=== PATIENT | female | born 1960 | race Caucasian/White ===

== ENCOUNTER 2017-03-20 18:40 | Emergency (ER) | payer BC | END 2017-03-20 20:03 | disposition left against medical advice (07) | LOC: ER 18:40 | DX: Z53.20 Procedure and treatment not carried out because of patient's decision for unspecified reasons (principal) ==

== ENCOUNTER 2017-03-21 01:16 | Emergency (ER) | payer BC ==
[2017-03-21] MEDS ORDERED: METHYLPREDNISOLONE PF 125MG/VIAL IVP ONE (01:24)
[2017-03-21] MEDS ORDERED: IPRATROPIUM/ALBUTEROL (0.5MG/3MG) NEB INH ONE (01:24)
[2017-03-21] MEDS ORDERED: FUROSEMIDE IV 40MG/4ML VIAL IVP ONE (01:28)
[2017-03-21 01:34] LABS: BASO % 0.7 % (0-6); EOS % 5.7 % (0-6); GRAN % 58.9 % (47-80); HEMATOCRIT 38.6 % (35.0-47.0); HEMOGLOBIN 12.7 gm/dl (11.6-16.0); LYMPH % 28.2 % (16-45); MEAN CELL VOLUME 94.8 fl (81-97); MEAN CORPUSCULAR HEMOGLOBIN 31.2 pg (27-33); MEAN CORPUSCULAR HGB CONC 32.9 g/dl (32-36); MEAN PLATELET VOLUME 9.7 fl (7.4-10.4); MONO % 6.5 % (0-9); PLATELET COUNT 322 K/uL (130-400); RED BLOOD COUNT 4.07 M/uL (3.80-5.40); RED CELL DISTRIBUTION WIDTH 13.4 % (11.5-14.5); WHITE BLOOD COUNT W/O DIFF 9.2 K/uL (4.2-12.2)
[2017-03-21] MEDS ORDERED: HUMULIN R 100 UNIT/ML VIAL SQ ONE (01:37)
[2017-03-21 01:43] LABS: BLOOD UREA NITROGEN 22 mg/dL (6-20); CREATININE 0.8 mg/dL (0.5-0.9); EST GLOMERULAR FILTRATION RATE > 60 mL/min
[2017-03-21 01:44] LABS: TOTAL PROTEIN 6.2 g/dL (6.6-8.7)
[2017-03-21 01:46] LABS: GLUCOSE,RANDOM 309 mg/dL (74-109)
[2017-03-21 01:48] LABS: ALT/SGPT 24 U/L (<33); AST/SGOT 27 U/L (10.0-35.0)
[2017-03-21 01:49] LABS: ALB/GLOB RATIO 0.9 (1.1-1.8); ALBUMIN 2.9 g/dL (4.0-5.0); ALKALINE PHOSPHATASE 116 U/L (35-104)
--- NOTE | 2017-03-21 02:42 | Emergency Department Record ---
History of Present Illness - General Chief Complaint: Shortness of breath Stated Complaint: FERCHO Time Seen by Provider: 03/21/17 01:17 Source: Patient Mode of Arrival: Ambulatory Limitations: No limitations - History of Present Illness Initial Comments: pt became suddenly sob this evening. she came to the ed but decided to leave because we were busy. she then had some cp at home and became much worse. she called 911 but then decided to have her son drive her in, she arrived in respiratory distress saying she cant breathe. Complaint: Shortness of breath Onset/Timin -: Hour(s) Consistency: Getting worse Improves With: Upright position Worsens With: Coughing, Lying flat, Movement Known History Of: Diabetes Associated Symptoms: Chest pain, Cough, Diaphoresis, Orthopnia Treatments Prior to Arrival: None - Related Data Home Oxygen Therapy: No Allergies Allergy/AdvReac Type Severity Reaction Status Date / Time Penicillins Allergy HIVES Unverified 11/21/16 08:48 vancomycin Allergy HIVES Unverified 11/21/16 08:48 Travel Screening - Travel/Exposure Within Last 30 Days Have you traveled within the last 30 days?: No - Travel Symptoms Symptom Screening: None Review of Systems Reviewed: No additional complaints except as noted below Constitutional: Reports: As per HPI, Weakness. Denies: Chills, Fever, Malaise, Night sweats, Weight change Eyes: Reports: As per HPI. Denies: Eye discharge, Eye pain, Photophobia, Vision change ENT: Reports: As per HPI, Congestion. Denies: Dental pain, Ear pain, Epistaxis , Hearing loss, Throat pain Respiratory: Reports: As per HPI, Cough, Dyspnea. Denies: Hemoptysis, Stridor, Wheezes Cardiovascular: Reports: As per HPI. Denies: Arrhythmia, Chest pain, Dyspnea on exertion, Edema, Murmurs, Orthopnea, Palpitations, Paroxysmal nocturnal dyspnea, Rheumatic Fever, Syncope Endocrine: Reports: As per HPI. Denies: Fatigue, Heat or cold intolerance, Polydipsia, Polyuria Gastrointestinal: Reports: As per HPI. Denies: Abdominal pain, Constipation, Diarrhea, Hematemesis, Hematochezia, Melena, Nausea, Vomiting Genitourinary: Reports: As per HPI. Denies: Abnormal menses, Discharge, Dyspareunia, Dysuria, Frequency, Hematuria, Incontinence, Retention, Urgency Musculoskeletal: Reports: As per HPI. Denies: Arthralgia, Back pain, Gout, Joint swelling, Myalgia, Neck pain Skin: Reports: As per HPI. Denies: Bruising, Change in color, Change in hair/ nails, Lesions, Pruritus, Rash Neurological: Reports: As per HPI. Denies: Abnormal gait, Confusion, Headache, Numbness, Paresthesias, Seizure, Tingling, Tremors, Vertigo, Weakness Psychiatric: Reports: As per HPI. Denies: Anxiety, Auditory hallucinations, Depression, Homicidal thoughts, Suicidal thoughts, Visual hallucinations Hematological/Lymphatic: Reports: As per HPI. Denies: Anemia, Blood Clots, Easy bleeding, Easy bruising, Swollen glands Past Medical History - SOCIAL HISTORY Smoking Status: Current every day smoker Alcohol Use: None Drug Use: None - RESPIRATORY Hx Respiratory Disorders: No - CARDIOVASCULAR Hx Cardio Disorders: Yes Hx Hypertension: Yes - NEURO Hx Neuro Disorders: No - GI Hx GI Disorders: No - Hx Genitourinary Disorders: Yes Hx Renal Disease: Yes (Stage 2) - ENDOCRINE Hx Endocrine Disorders: Yes Hx Diabetes: Yes (DM1) Hx Thyroid Disease: Yes (Hypo) - MUSCULOSKELETAL Hx Musculoskeletal Disorders: No - PSYCH Hx Psych Problems: No - HEMATOLOGY/ONCOLOGY Hx Hematology/Oncology Disorders: Yes Hx Cancer: Yes (Skin (surgically removed)) Hx Chemotherapy: No Hx Radiation Therapy: No Family Medical History Any Significant Family History?: Yes Hx Cancer: Mother, Brother/Sister Hx Heart Disease: Father Physical Exam - General General Appearance: Alert, Oriented x3, Cooperative, Mild distress - Head Head exam: Normal inspection - Eye Eye exam: Normal appearance, PERRL, EOMI Pupils: Normal accommodation - ENT ENT exam: Normal exam, Mucous membranes moist, Normal external ear exam, Normal orophraynx Ear exam: Normal external inspection. negative: External canal tenderness Nasal Exam: Normal inspection. negative: Discharge, Sinus tenderness Mouth exam: Normal external inspection, Tongue normal Teeth exam: Normal inspection. negative: Dental caries Throat exam: Normal inspection. negative: Tonsillar erythema, Tonsillar exudate - Neck Neck exam: Normal inspection, Full ROM. negative: Tenderness - Respiratory Respiratory exam: Normal lung sounds bilaterally. negative: Respiratory distress - Cardiovascular Cardiovascular Exam: Normal rhythm, Normal heart sounds, Tachycardia - GI/Abdominal GI/Abdominal exam: Soft, Normal bowel sounds. negative: Tenderness - Rectal Rectal exam: Deferred - exam: Deferred - Extremities Extremities exam: Normal inspection, Full ROM, Normal capillary refill. negative: Tenderness - Back Back exam: Reports: Normal inspection, Full ROM. 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 ] Respiratory 24 31 H 19 Rate Blood Pressure 169/96 155/84 [Left Arm] Pulse Ox 97 99 94 L - Reevaluation(s) Reevaluation #1: 03/21/17 04:28 pt is doing better though she does desat quickly when she moves around Medical Decision Making - Lab Data Result diagrams: 03/21/17 01:30 03/21/17 01:30 Lab Results 03/21/17 03/21/17 03/21/17 Range/Units 01:30 01:30 01:30 WBC 9.2 (4.2-12.2) K/uL RBC 4.07 (3.80-5.40) M/uL Hgb 12.7 (11.6-16.0) gm/dl Hct 38.6 (35.0-47.0) % MCV 94.8 (81-97) fl MCH 31.2 (27-33) pg MCHC 32.9 (32-36) g/dl RDW 13.4 (11.5-14.5) % Plt Count 322 (130-400) K/uL MPV 9.7 (7.4-10.4) fl Gran % 58.9 (47-80) % Lymphocytes % 28.2 (16-45) % Monocytes % 6.5 (0-9) % Eosinophils % 5.7 (0-6) % Basophils % 0.7 (0-6) % D-Dimer 1.99 H (0-0.59) mg/L FEU Sodium 140 (136-145) mmol/L Potassium 4.2 (3.4-4.5) mmol/L Chloride 100 (98-107) mmol/L Carbon Dioxide 30.0 H (22-29) mmol/L Anion Gap 10.0 (7-16) BUN 22 H (6-20) mg/dL Creatinine 0.8 (0.5-0.9) mg/dL Estimated GFR > 60 mL/min Random Glucose 309 H (74-109) mg/dL Calcium 8.8 (8.6-10.0) mg/dL Total Bilirubin 0.20 (0.2-1.0) mg/dL AST 27 (10.0-35.0) U/L ALT 24 (<33) U/L Alkaline Phosphatase 116 H (35-104) U/L Troponin T 0.042 H (0-0.010) ng/mL NT-Pro-B Natriuret Pep 5803.00 H (<125) pg/mL Total Protein 6.2 L (6.6-8.7) g/dL Albumin 2.9 L (4.0-5.0) g/dL Globulin 3.3 (1.4-4.8) gm/dL Albumin/Globulin Ratio 0.9 L (1.1-1.8) 1818 Range/Units 01:33 WBC (4.2-12.2) K/uL RBC (3.80-5.40) M/uL Hgb (11.6-16.0) gm/dl Hct (35.0-47.0) % MCV (81-97) fl MCH (27-33) pg MCHC (32-36) g/dl RDW (11.5-14.5) % Plt Count (130-400) K/uL MPV (7.4-10.4) fl Gran % (47-80) % Lymphocytes % (16-45) % Monocytes % (0-9) % Eosinophils % (0-6) % Basophils % (0-6) % D-Dimer (0-0.59) mg/L FEU Sodium (136-145) mmol/L Potassium (3.4-4.5) mmol/L Chloride (98-107) mmol/L Carbon Dioxide (22-29) mmol/L Anion Gap (7-16) BUN (6-20) mg/dL Creatinine (0.5-0.9) mg/dL Estimated GFR mL/min Random Glucose (74-109) mg/dL Calcium (8.6-10.0) mg/dL Total Bilirubin (0.2-1.0) mg/dL AST (10.0-35.0) U/L ALT (<33) U/L Alkaline Phosphatase (35-104) U/L Troponin T Cancelled (0-0.010) ng/mL NT-Pro-B Natriuret Pep (<125) pg/mL Total Protein (6.6-8.7) g/dL Albumin (4.0-5.0) g/dL Globulin (1.4-4.8) gm/dL Albumin/Globulin Ratio (1.1-1.8) Disposition Disposition: Transfer Clinical Impression: Bilateral pleural effusion, Hypoxia, Hyperglycemia due to type 1 diabetes mellitus Chest pain Qualifiers: Chest pain type: unspecified Qualified Code(s): R07.9 - Chest pain, unspecified Disposition: Acute Care Hospital Transfer Transfer To: [facility] 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
--- NOTE | 2017-03-21 21:03 | RADIOLOGY REPORT ---
EXAM: CHEST 2 VIEWS HISTORY: SHORTNESS OF BREATH FOR TWO WEEKS. TECHNIQUE: PA and lateral views. COMPARISON: No prior chest x-ray with which to compare. FINDINGS: Heart size is at about the upper limits of normal. However, there appear to be bilateral pleural effusions, probably with some Shawna B-lines in the bases and clinical correlation as to mild CHF suggested. Minor bibasilar streaky atelectasis or infiltrate as well. No pneumothorax evident. Mild apical pleural thickening bilaterally. IMPRESSION: BILATERAL PLEURAL EFFUSIONS, PROBABLY WITH SOME SHAWNA B-LINES AND CLINICAL CORRELATION TO MILD CHF SUGGESTED. JOB NUMBER: [id number] MTDD
--- NOTE | 2017-03-22 07:24 | CT ANGIOGRAM REPORT ---
DATE: 03/21/2017 at 2:51 a.m. EXAM: CT ANGIOGRAM OF THE CHEST FOR PULMONARY EMBOLUS WITH POSTPROCESSING. HISTORY: Shortness of breath, difficulty in breathing, elevated D-dimer, possible pulmonary embolus. TECHNIQUE: CTA of the chest performed following the intravenous administration of 90 mL of Omnipaque 350 as the intravenous contrast. Postprocessing on an independent work station was performed with multiple 3D MIP series obtained. Preliminary report provided by [facility]. COMPARISON: No prior chest CT. Comparison is made with a two-view chest x-ray also obtained this morning on 03/21/2017 at 2:03 a.m. FINDINGS: No definite pulmonary embolus identified. No thoracic aortic aneurysm or dye section is seen. Heart size at about the upper limits of normal. There are moderate bilateral pleural effusions, right slightly larger than left. Some hazy, ground-glass density may represent some mild pulmonary edema as well. Clinical correlation as to congestive heart failure is suggested. No pneumothorax is evident. There is some mild mediastinal adenopathy, particularly in the right peritracheal and subcarinal regions and slightly prominent hilar nodes as well. These may all be reactive in nature although are nonspecific. There is a small subpleural nodular opacity anterolaterally in the right upper lobe seen on image 28 of 117. This is somewhat oblong measuring about 6.0 mm x 2.0 mm in size. This may just be a focal area of subpleural atelectasis, although it is nonspecific. Comparison to any prior chest CTs or a follow-up chest CT in about six months' time might be useful to reassess. IMPRESSION: 1. NO DEFINITE PULMONARY EMBOLUS IDENTIFIED. 2. BILATERAL PLEURAL EFFUSIONS WITH FINDINGS LIKELY REPRESENTING CONGESTIVE HEART FAILURE. 3. SOME MILD MEDIASTINAL AND PROBABLY ALSO BILATERAL HILAR ADENOPATHY, NONSPECIFIC. 4. SOME DEPENDENT ATELECTASIS, PARTICULARLY IN THE RIGHT BASE. 5. SMALL OBLONG SUBPLEURAL NODULE IN THE RIGHT UPPER LUNG LATERALLY, NONSPECIFIC, ALTHOUGH MAY SIMPLY BE SOME SUBPLEURAL ATELECTASIS GIVEN ITS OBLONG APPEARANCE. FOLLOW-UP CHEST CT IN SIX MONTHS' TIME MIGHT BE USEFUL TO REASSESS. JOB NUMBER: [id number] MTDD
== END 2017-03-21 04:55 | disposition short-term general hospital (02) ==
LOC: ER 01:16
DX: I13.0 Hypertensive heart and chronic kidney disease with heart failure and stage 1 through stage 4 chronic kidney disease, or unspecified chronic kidney disease (principal); I50.9 Heart failure, unspecified; N18.2 Chronic kidney disease, stage 2 (mild); E10.22 Type 1 diabetes mellitus with diabetic chronic kidney disease; E10.65 Type 1 diabetes mellitus with hyperglycemia; R09.02 Hypoxemia; R79.89 Other specified abnormal findings of blood chemistry; F17.210 Nicotine dependence, cigarettes, uncomplicated; Z79.4 Long term (current) use of insulin
CPT/HCPCS: 99285 ×2; 96374; 96375; 85025; 80053; 84484; 85379; 83880; 71046; 71275; 94640; 93005; 93010; Q9967; J1940; J2930

== ENCOUNTER 2018-01-18 00:21 | Emergency (ER) | payer BC ==
[2018-01-18] MEDS ORDERED: ONDANSETRON HCL IV 4 MG/2 ML VIAL IVP ONE (00:33)
[2018-01-18] MEDS ORDERED: MORPHINE SULFATE 10 MG/ML VIAL IVP ONE (00:33)
[2018-01-18 00:38] LABS: BASO % 0.6 % (0-6); EOS % 3.7 % (0-6); GRAN % 60.7 % (47-80); HEMOGLOBIN 12.6 gm/dl (11.6-16.0); LYMPH % 26.7 % (16-45); MEAN CELL VOLUME 91.6 fl (81-97); MEAN CORPUSCULAR HEMOGLOBIN 31.2 pg (27-33); MEAN CORPUSCULAR HGB CONC 34.1 g/dl (32-36); MONO % 8.3 % (0-9); PLATELET COUNT 256 K/uL (130-400); RED BLOOD COUNT 4.04 M/uL (3.80-5.40); WHITE BLOOD COUNT W/O DIFF 8.8 K/uL (4.2-12.2)
--- NOTE | 2018-01-18 00:39 | Emergency Department Record ---
History of Present Illness - General Chief Complaint: Chest Pain Stated Complaint: CHEST PAIN Time Seen by Provider: 01/18/18 00:28 Source: Patient Mode of Arrival: Ambulatory Limitations: No limitations - History of Present Illness Initial Comments: 57 yo female presents to ED for evaluation of left sided chest pain symptoms that began 2 days ago after sneezing. 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 Patient reports pain with deep breaths, movement of the trunk, and palpation of the left lateral ribs. Patient denies fevers, chills, or cough symptoms. Patient denies previous [place] or stents, does report CHF history, IDDM, previous CVA, and HTN. MD Complaint: Chest pain Onset/Timin -: Days(s) Pain Location: Left chest Severity scale (1-10): 9 Quality: Ripping, Sharp Consistency: Intermittent Improves With: Remaining still, Rest Worsens With: Movement Anginal Symptoms: Dyspnea Treatments Prior to Arrival: None - Related Data Home Medications Medication Instructions Recorded Confirmed Last Taken Clopidogrel Bisulfate [Clopidogrel] 75 mg PO DAILY 01/18/18 01/18/18 Unknown Insulin Detemir [Levemir Flextouch] 14 unit SQ QPM 01/18/18 01/18/18 Unknown Allergies Allergy/AdvReac Type Severity Reaction Status Date / Time Penicillins Allergy HIVES Verified 01/18/18 00:25 vancomycin Allergy HIVES Verified 01/18/18 00:25 Travel Screening - Travel/Exposure Within Last 30 Days Have you traveled within the last 30 days?: No - Travel Symptoms Symptom Screening: None Review of Systems Constitutional: Denies: Chills, Fever, Malaise, Night sweats Eyes: Denies: Eye discharge, Eye pain ENT: Denies: Congestion, Ear pain, Epistaxis Respiratory: Denies: Cough, Dyspnea Cardiovascular: Reports: Chest pain. Denies: Dyspnea on exertion Endocrine: Denies: Fatigue, Heat or cold intolerance Gastrointestinal: Denies: Abdominal pain, Nausea, Vomiting Genitourinary: Denies: Incontinence, Retention Musculoskeletal: Denies: Arthralgia, Back pain Skin: Denies: Bruising, Change in color Neurological: Denies: Abnormal gait, Confusion, Headache, Seizure Psychiatric: Denies: Anxiety Hematological/Lymphatic: Denies: Anemia, Blood Clots Past Medical History - SOCIAL HISTORY Smoking Status: Current every day smoker - RESPIRATORY Hx Respiratory Disorders: Yes Comment:: Pneumothorax - CARDIOVASCULAR Hx Cardio Disorders: Yes Hx CHF: Yes Hx Hypertension: Yes - NEURO Hx Neuro Disorders: Yes Hx CVA: Yes - GI Hx GI Disorders: No - Hx Genitourinary Disorders: Yes Hx Renal Disease: Yes (Stage 2) - ENDOCRINE Hx Endocrine Disorders: Yes Hx Diabetes: Yes (DM1) Hx Thyroid Disease: Yes (Hypo) - MUSCULOSKELETAL Hx Musculoskeletal Disorders: No - PSYCH Hx Psych Problems: No - HEMATOLOGY/ONCOLOGY Hx Hematology/Oncology Disorders: Yes Hx Cancer: Yes (Skin (surgically removed)) Hx Chemotherapy: No Hx Radiation Therapy: No Family Medical History Any Significant Family History?: Yes Hx Cancer: Mother, Brother/Sister Hx Heart Disease: Father Physical Exam - General General Appearance: Alert, Oriented x3, Cooperative, Moderate distress Limitations: No limitations - Head Head exam: Atraumatic, Normocephalic, Normal inspection Head exam detail: negative: Abrasion, Contusion, Martinez's sign, General tenderness, Hematoma, Laceration - Eye Eye exam: Normal appearance. negative: Conjunctival injection, Periorbital swelling, Periorbital tenderness, Scleral icterus - ENT Ear exam: negative: Auricular hematoma, Auricular trauma Nasal Exam: negative: Active bleeding, Discharge, Dried blood, Foreign body Mouth exam: negative: Drooling, Laceration, Muffled voice, Tongue elevation - Neck Neck exam: Normal inspection. negative: Meningismus, Tenderness - Respiratory Respiratory exam: Normal lung sounds bilaterally, Chest wall tenderness (TTP to the left chest wall). negative: Rales, Respiratory distress, Rhonchi, Stridor - Cardiovascular Cardiovascular Exam: Regular rate, Normal rhythm, Normal heart sounds - GI/Abdominal GI/Abdominal exam: Soft. negative: Rebound, Rigid, Tenderness - Rectal Rectal exam: Deferred - exam: Deferred - Extremities Extremities exam: Normal inspection. negative: Calf tenderness, Pedal edema, Tenderness - Back Back exam: Denies: CVA tenderness (R), CVA tenderness (L) - Neurological Neurological exam: Alert, Normal gait, Oriented X3 - Psychiatric Psychiatric exam: Anxious - Skin Skin exam: Normal color. negative: Abrasion Type of lesion: negative: abrasion Course Vital Signs 01/18/18 00:25 Temperature 97.7 F Pulse Rate 78 Respiratory 18 Rate Blood Pressure 179/84 Pulse Ox 100 - Reevaluation(s) Reevaluation #1: 01/18/18 00:34 EKG: NSR 78 LAD, normal intervals T wave inversions I, AVL, ST depression II, V6 (V5 artifact present) Overall unchanged from 03/21/17 Reevaluation #2: 01/18/18 01:11 Laboratory studies were reviewed: GFR 49 Troponin 0.028 Glucose 306 ASA ordered to be given, patient is currently in CT for imaging. Reevaluation #3: 01/18/18 01:29 Patient is back from CT imaging, reports that her pain symptoms are improved. Patient was updated on all results thus far, awaiting CTA results. Reevaluation #4: 01/18/18 02:05 CTA Chest: No PE No acute pulmonary process High grade stenosis at the origin of the right renal artery Possible stenosis at the origin of the left vertebral artery Kink at the subclavian artery near the junction of the axillary artery Patient was updated on all results, recommended transfer for elevated troponin and further vascular evaluation. Following discussion with the patient and family regarding transfer, patient reports that they want to leave AMA at this time. Risks of , permanent impairment, or worsening of their current condition were discussed as well as the benefit of transfer for further evaluation of her vascular abnormalities and elevated Troponin. Patient verbalizes understanding of all risks and benefits, desires to leave AMA despite these risks. Based on my examination, the patient is alert, oriented, and answers all questions appropriately. Patient appears to have the capacity to make rational decisions based on my examination. Patients family was present for the duration of our discussion as well. Patient was encouraged to return to the ED immediately if they change their mind about treatment and want to be re-evaluated. Medical Decision Making - Lab Data Result diagrams: 01/18/18 00:36 01/18/18 00:36 Disposition Disposition: Discharge Clinical Impression: Left-sided chest wall pain, Elevated troponin, Renal artery stenosis Disposition: Against Medical Advice Condition: (2) Stable Instructions: Chest Pain (ED) Additional Instructions: Return to ED if your symptoms worsen or if you have any concerns. Follow-up with Dr. Finch in 1-3 days as directed for further evaluation of your chest pain symptoms and arterial stenoses. Forms: Patient Portal Access Time of Disposition: 02:10 Quality - Quality Measures Quality Measures: N/A - Blood Pressure Screening Does Patient Have Any of the Following: No Blood Pressure Classification: Pre-Hypertensive BP Reading Systolic Measurement: 179 Diastolic Measurement: 84 Screening for High Blood Pressure: < Pre-Hypertensive BP, F/U Documented > [ G8950] Pre-Hypertensive Follow-up Interventions: Referral to alternative/primary care provider.
[2018-01-18] MEDS ORDERED: 0.9 % SODIUM CHLORIDE 1000ML 500 ML IV SCH (00:45)
[2018-01-18] MEDS ORDERED: 0.9 % SODIUM CHLORIDE 1000ML 1,000 ML IV SCH (00:45)
[2018-01-18 00:51] LABS: BILIRUBIN,TOTAL 0.2 mg/dL (0.2-1.0); CREATININE 1.2 mg/dL (0.5-0.9); TOTAL PROTEIN 6.6 g/dL (6.6-8.7)
[2018-01-18 00:56] LABS: ALB/GLOB RATIO 1.1 (1.1-1.8); ALBUMIN 3.5 g/dL (4.0-5.0)
[2018-01-18] MEDS ORDERED: ASPIRIN 81 MG CHEWABLE TABLET PO ONE (01:10)
--- NOTE | 2018-01-19 07:10 | CT ANGIOGRAM REPORT ---
DATE: 01/18/2018 at [].m. EXAM: CTA OF THE CHEST WITH CONTRAST. HISTORY: A 57-year-old female with left-sided chest pain. TECHNIQUE: Routine CT angiography images of the chest were obtained following intravenous administration of contrast; the amount and type of contrast in the medical record. The 3D and MIP images were obtained for further assessment. COMPARISON: 03/21/2017. FINDINGS: The heart is not enlarged. No pericardial effusion. The aorta enhances normally with contrast. Mild kinking noted at the junction of the right subclavian and axillary artery of questionable significance. Normal distal contrast enhancement is seen. There is a high-grade stenosis of the right renal artery within the visualized upper abdomen. Finally, there is suggestion of stenosis within the left vertebral artery origin. No central filling defects within the pulmonary arteries to suggest acute pulmonary embolus. There is similar mild mediastinal and bilateral hilar lymph node prominence which is nonspecific but could be a sequela of prior granulomatous disease/reactive change. The lungs are free of focal consolidation. There is mild pulmonary emphysema. Similar tiny nodule in the superolateral right upper lobe. The visualized upper abdomen is unremarkable. IMPRESSION: 1. NO ACUTE INTRATHORACIC ABNORMALITY. SPECIFICALLY, NO EVIDENCE OF PULMONARY EMBOLUS. 2. MILD PULMONARY EMPHYSEMA. 3. SIMILAR MILD PROMINENT MEDIASTINAL AND HILAR LYMPH NODE ENLARGEMENT, PROBABLY REACTIVE. 4. ARTERIAL CHANGES DISCUSSED ABOVE. JOB NUMBER: [id number] MTDD
== END 2018-01-18 02:26 | disposition left against medical advice (07) ==
LOC: ER 00:21
DX: R07.89 Other chest pain (principal); I70.1 Atherosclerosis of renal artery; R79.89 Other specified abnormal findings of blood chemistry; R06.00 Dyspnea, unspecified; E11.9 Type 2 diabetes mellitus without complications; I10 Essential (primary) hypertension; I50.9 Heart failure, unspecified; F17.210 Nicotine dependence, cigarettes, uncomplicated
CPT/HCPCS: 99284 ×2; 96374; 96375; 85025; 80053; 84484; 71275; 93005; 93010; Q9967; J2405; J2270; J7030

== ENCOUNTER 2018-01-20 18:20 | Emergency (ER) | payer BC ==
[2018-01-20] MEDS ORDERED: KETOROLAC 30 MG/ML VIAL IVP ONE (18:36)
--- NOTE | 2018-01-20 18:40 | Emergency Department Record ---
History of Present Illness - General Chief Complaint: Chest Pain Stated Complaint: SYMPTOMS HAVEW WORSENED SINCE LAST VISIT Time Seen by Provider: 01/20/18 18:23 Source: Patient Mode of Arrival: Ambulatory - History of Present Illness Initial Comments: 57 yo female presents to ED for evaluation of continued left sided chest pain symptoms. Patient reports that her symptoms began 4 days ago after sneezing, worsened whiel doing hoouse work 2 night ago. Patient reports pain to the left chest with deep inspiration or movement of the trunk. Patient denies fevers, chills, cough, or recent illness. Patient denies previous heart problems, but does report history of IDDM. MD Complaint: Chest pain Onset/Timin -: Days(s) Onset: During rest Pain Location: Left chest Pain Radiation: Back Severity: Mild Severity scale (1-10): 8 Quality: Aching, Sharp Consistency: Intermittent Improves With: Nothing Worsens With: Inspiration Treatments Prior to Arrival: None - Related Data Allergies Allergy/AdvReac Type Severity Reaction Status Date / Time Penicillins Allergy HIVES Verified 01/18/18 00:25 vancomycin Allergy HIVES Verified 01/18/18 00:25 Travel Screening - Travel/Exposure Within Last 30 Days Have you traveled within the last 30 days?: No Review of Systems Constitutional: Denies: Chills, Fever, Malaise, Night sweats Eyes: Denies: Eye discharge, Eye pain ENT: Denies: Congestion, Ear pain, Epistaxis Respiratory: Denies: Cough, Dyspnea Cardiovascular: Reports: Chest pain. Denies: Dyspnea on exertion Endocrine: Denies: Fatigue, Heat or cold intolerance Gastrointestinal: Denies: Abdominal pain, Nausea, Vomiting Genitourinary: Denies: Incontinence, Retention Musculoskeletal: Denies: Arthralgia Skin: Denies: Bruising, Change in color Neurological: Denies: Abnormal gait, Confusion, Headache Psychiatric: Denies: Anxiety Hematological/Lymphatic: Denies: Anemia, Blood Clots Past Medical History - SOCIAL HISTORY Smoking Status: Current every day smoker - RESPIRATORY Hx Respiratory Disorders: Yes Comment:: Pneumothorax - CARDIOVASCULAR Hx Cardio Disorders: Yes Hx CHF: Yes Hx Hypertension: Yes - NEURO Hx Neuro Disorders: Yes Hx CVA: Yes - GI Hx GI Disorders: No - Hx Genitourinary Disorders: Yes Hx Renal Disease: Yes (Stage 2) - ENDOCRINE Hx Endocrine Disorders: Yes Hx Diabetes: Yes (DM1) Hx Thyroid Disease: Yes (Hypo) - MUSCULOSKELETAL Hx Musculoskeletal Disorders: No - PSYCH Hx Psych Problems: No - HEMATOLOGY/ONCOLOGY Hx Hematology/Oncology Disorders: Yes Hx Cancer: Yes (Skin (surgically removed)) Hx Chemotherapy: No Hx Radiation Therapy: No Family Medical History Any Significant Family History?: Yes Hx Cancer: Mother, Brother/Sister Hx Heart Disease: Father Physical Exam - General General Appearance: Alert, Oriented x3, Cooperative, Mild distress, Other ( Patient is resting comfortably on initial examination.) Limitations: No limitations - Head Head exam: Atraumatic, Normocephalic, Normal inspection Head exam detail: negative: Abrasion, Contusion, Martinez's sign, General tenderness, Hematoma, Laceration - Eye Eye exam: Normal appearance. negative: Conjunctival injection, Periorbital swelling, Periorbital tenderness, Scleral icterus - ENT Ear exam: negative: Auricular hematoma, Auricular trauma Nasal Exam: negative: Active bleeding, Discharge, Dried blood, Foreign body Mouth exam: negative: Drooling, Laceration, Muffled voice, Tongue elevation - Neck Neck exam: Normal inspection. negative: Meningismus, Tenderness - Respiratory Respiratory exam: Normal lung sounds bilaterally. negative: Respiratory distress, Rhonchi, Stridor, Wheezes - Cardiovascular Cardiovascular Exam: Regular rate, Normal rhythm, Normal heart sounds - GI/Abdominal GI/Abdominal exam: Soft. negative: Rebound, Rigid, Tenderness - Rectal Rectal exam: Deferred - exam: Deferred - Extremities Extremities exam: Normal inspection. negative: Pedal edema, Tenderness - Back Back exam: Denies: CVA tenderness (R), CVA tenderness (L) - Neurological Neurological exam: Alert, Normal gait, Oriented X3 - Psychiatric Psychiatric exam: Normal affect, Normal mood - Skin Skin exam: Normal color. negative: Abrasion Type of lesion: negative: abrasion Course Vital Signs 01/20/18 18:31 Temperature 98.0 F Pulse Rate 74 Respiratory 20 Rate Blood Pressure 168/88 Pulse Ox 97 - Reevaluation(s) Reevaluation #1: 01/20/18 18:44 EKG: NSR 73 LAD, LVH ST depression I, AVL, V5-V6. Unchanged from 01/18/18 CTA Chest 01/18/18: No acute process No PE Vascular changes as described previously. Reevaluation #2: 01/20/18 18:46 Toradol ordered for patient's pain symptoms, patient declined. ASA ordered for possible cardiac etiology. Reevaluation #3: 01/20/18 19:23 Laboratory studies were reviewed: Glucose 302 Troponin 0.20 (previous 0.028). Labs are otherwise grossly unremarkable for an acute process. Awaiting patient's CXR for further disposition. Reevaluation #4: 01/20/18 19:39 CXR: No acute process [facility]-call contacted for transfer for further evaluation. Reevaluation #5: 01/20/18 19:55 Case was discussed with Dr. Jiménez, will accept the patient for transfer for further evaluation. Medical Decision Making - Lab Data Result diagrams: 01/20/18 18:40 01/20/18 18:40 Disposition Disposition: Transfer Clinical Impression: Elevated troponin, Renal artery stenosis Chest pain Qualifiers: Chest pain type: unspecified Qualified Code(s): R07.9 - Chest pain, unspecified Disposition: Acute Care Hospital Transfer Transfer To: [facility] Reason For Transfer: Elevated transfer, PVD Accepting Physician: Tino Time Discussed w/Accepting Physician: 19:42 Condition: (2) Stable Forms: Patient Portal Access Time of Disposition: 19:42 Quality - Quality Measures Quality Measures: N/A - Blood Pressure Screening Does Patient Have Any of the Following: Active Dx of HTN Blood Pressure Classification: Pre-Hypertensive BP Reading Systolic Measurement: 168 Diastolic Measurement: 88 Screening for High Blood Pressure: Patient Exclusion, Hx of HTN [[id number]]
[2018-01-20 18:47] LABS: BASO % 0.6 % (0-6); EOS % 4.5 % (0-6); GRAN % 55.6 % (47-80); HEMATOCRIT 33.5 % (35.0-47.0); HEMOGLOBIN 11.4 gm/dl (11.6-16.0); LYMPH % 32.3 % (16-45); MEAN CELL VOLUME 91.3 fl (81-97); MEAN PLATELET VOLUME 10.1 fl (7.4-10.4); PLATELET COUNT 253 K/uL (130-400); RED BLOOD COUNT 3.67 M/uL (3.80-5.40); WHITE BLOOD COUNT W/O DIFF 6.9 K/uL (4.2-12.2)
[2018-01-20] MEDS ORDERED: ASPIRIN 81 MG CHEWABLE TABLET PO ONE (18:47)
[2018-01-20 19:06] LABS: BILIRUBIN,TOTAL 0.2 mg/dL (0.2-1.0); CREATININE 1.1 mg/dL (0.5-0.9)
[2018-01-20 19:07] LABS: TOTAL PROTEIN 6.1 g/dL (6.6-8.7)
[2018-01-20 19:11] LABS: ALB/GLOB RATIO 1.1 (1.1-1.8); ALBUMIN 3.2 g/dL (4.0-5.0)
--- NOTE | 2018-01-21 12:34 | RADIOLOGY REPORT ---
EXAM: CHEST, TWO VIEWS HISTORY: CHEST PAIN. TECHNIQUE: Frontal and lateral views of the chest were obtained. Comparison: 03/21/17. FINDINGS: No acute cardiopulmonary abnormality. Widening of the bilateral acromioclavicular joints, which could be post surgical in nature. Normal heart size. IMPRESSION: 1. NO ACUTE CARDIOPULMONARY ABNORMALITY. 2. WIDENING OF THE BILATERAL ACROMIOCLAVICULAR JOINTS, WHICH COULD BE POST SURGICAL IN NATURE. 3. NORMAL HEART SIZE. JOB NUMBER: [id number] MTDD
== END 2018-01-20 20:57 | disposition short-term general hospital (02) ==
LOC: ER 18:20
DX: R07.9 Chest pain, unspecified (principal); R79.89 Other specified abnormal findings of blood chemistry; I70.1 Atherosclerosis of renal artery; M54.5 Low back pain; I50.9 Heart failure, unspecified; I10 Essential (primary) hypertension; E10.9 Type 1 diabetes mellitus without complications; Z79.4 Long term (current) use of insulin; F17.210 Nicotine dependence, cigarettes, uncomplicated
CPT/HCPCS: 71046; 80053; 84484; 85025; 93005; 93010; 99285